=== PATIENT | female | born 1965 | race Caucasian/White ===

== ENCOUNTER 2018-01-11 06:11 | Day surgery (SDC) | payer OTHER ==
[~2018-01-11] VITALS: Ht 172.7 cm; Wt 93.3 kg
[~2018-01-11 06:11] MED LIST: ANTIANXIETY MED PO; BIOTIN PO; MAGNESIUM PO; MELATONIN PO
[2018-01-11 07:06] VITALS: BP 131/84
[2018-01-11] MEDS ORDERED: LACTATED RINGERS 1,000 ML IV SCH (07:10)
[2018-01-11] MEDS ORDERED: LIDOCAINE-MPF 1%, 2ML ONE (07:13)
[2018-01-11] MEDS ORDERED: LIDOCAINE-MPF 1%, 2ML INFIL ONE (07:30)
[2018-01-11] MEDS ORDERED: SCOPOLAMINE PATCH, 1.5MG PATCH.TD72 TD ONE ×2 (07:43→08:00)
[2018-01-11] MEDS ORDERED: GABAPENTIN 300 MG CAPSULE ONE (07:43)
[2018-01-11] MEDS ORDERED: OXYcodone IR 5MG TABLET ONE (07:44)
[2018-01-11] MEDS ORDERED: FENTANYL PF 250 MCG/5ML ONE (07:45)
[2018-01-11] MEDS ORDERED: MIDAZOLAM 1 MG/ML, 2ML ONE (07:45)
[2018-01-11] MEDS ORDERED: GABAPENTIN 300 MG CAPSULE PO ONE (08:00)
[2018-01-11] MEDS ORDERED: EPINEPHRINE 1 MG/ML, 1ML ONE (08:00)
[2018-01-11] MEDS ORDERED: LIDOCAINE 1%, 50ML ONE (08:00)
[2018-01-11] MEDS ORDERED: BUPIVACAINE/PF 0.5% ONE (08:00)
[2018-01-11] MEDS ORDERED: OXYcodone IR 5MG TABLET PO ONE (08:00)
[2018-01-11] MEDS ORDERED: ACETAMINOPHEN 500 MG TABLET PO ONE (08:00)
[2018-01-11] MEDS ORDERED: SUCCINYLCHOLINE 20 MG/ML, 10ML ONE (08:03)
[2018-01-11] MEDS ORDERED: ONDANSETRON 2MG/ML, 2ML ONE (08:03)
[2018-01-11] MEDS ORDERED: ROCURONIUM 10MG/ML,5ML ONE (08:03)
[2018-01-11] MEDS ORDERED: PROPOFOL 10 MG/ML, 20ML ONE (08:03)
[2018-01-11] MEDS ORDERED: DEXAMETHASONE 4 MG/ML, 1ML ONE (08:03)
[2018-01-11] MEDS ORDERED: NEOSTIGMINE 1 MG/ML, 10ML ONE (08:03)
[2018-01-11] MEDS ORDERED: GLYCOPYRROLATE 0.2MG/1ML, 5ML ONE (08:03)
[2018-01-11] MEDS ORDERED: CEFAZOLIN 1,000 MG ONE (08:03)
[2018-01-11] MEDS ORDERED: LIDOCAINE 4%, 4 ML SYR/CANN TP ONE ×2 (08:04→08:05)
[2018-01-11] MEDS ORDERED: BUPIVACAINE/PF-EPI 0.5% 1:200K INFIL ONE (09:10)
[2018-01-11] MEDS ORDERED: FENTANYL PF 100 MCG/2ML ONE (09:46)
[2018-01-11] MEDS ORDERED: OXYcodone 5 MG/5 ML ORAL.SOL UDC ONE ×2 (09:46→10:31)
[2018-01-11] MEDS ORDERED: MORPHINE SULFATE 4 MG/ML, 1ML ONE ×3 (09:46→10:31)
[2018-01-11] MEDS: FENTANYL PF 100 MCG/2ML IV PRN ×2 (09:48→10:06)
[2018-01-11] MEDS: OXYcodone 5 MG/5 ML ORAL.SOL UDC PO PRN ×2 (09:48→10:32)
[2018-01-11] MEDS ORDERED: ONDANSETRON 2MG/ML, 2ML IVPush PRN (10:00)
[2018-01-11] MEDS ORDERED: PROMETHAZINE 25 MG/ML, 1ML IV PRN (10:00)
[2018-01-11] MEDS ORDERED: HYDROcodone/APAP 7.5-325MG/15ML UDC PO PRN (10:00)
[2018-01-11] MEDS: morphine SULFATE 10 MG/ML, 1ML IV PRN ×4 (10:01→10:39)
[2018-01-11] MEDS ORDERED: LORazepam 2 MG/ML, 1ML ONE (10:08)
[2018-01-11] MEDS: LORazepam 2 MG/ML, 1ML IVPush PRN ×2 (10:11→10:26)
[2018-01-11] MEDS ORDERED: OXYcodone/APAP 5/325MG TABLET PO PRN (15:30)
[2018-01-11] MEDS ORDERED: OXYcodone/APAP 5/325MG TABLET ONE (15:31)
== END 2018-01-11 15:35 | disposition home or self-care (01) ==
LOC: OUT 06:11
PROVIDERS: ATTEND Colon & Rectal Surgery
DX: K43.2 Incisional hernia without obstruction or gangrene (principal); Z87.891 Personal history of nicotine dependence; F41.9 Anxiety disorder, unspecified; Z90.49 Acquired absence of other specified parts of digestive tract; Z98.890 Other specified postprocedural states; Z72.89 Other problems related to lifestyle; Z82.49 Family history of ischemic heart disease and other diseases of the circulatory system
CPT/HCPCS: 49654; C1781; J0171; J0330; J0690; J1100; J2060; J2250; J2270; J2405; J2704; J2710; J3010; J3490; J7120; S2900

== ENCOUNTER → 2019-02-26 | Outpatient (CLI) | payer BC, OTHER | END | disposition home or self-care (01) | LOC: CFH 14:43 | PROVIDERS: ATTEND Internal Medicine Cardiovascular Disease | DX: R00.2 Palpitations (principal); I25.10 Atherosclerotic heart disease of native coronary artery without angina pectoris; Z87.891 Personal history of nicotine dependence | CPT/HCPCS: 93306 ==